=== PATIENT | female | born 1980 | race Hispanic/Latino ===

== ENCOUNTER 2018-02-24 10:52 | Emergency (ER) | payer BC, SELFPAY ==
[2018-02-24 12:44] LABS: Urine Blood 2+ (NEG); Urine Glucose NEGATIVE (NEG); Urine Protein 2+ (NEG)
[2018-02-24 13:02] LABS: Absolute Lymphocytes (CBC) 1.3 K/uL (0.7-4.9); Absolute Monocytes 0.7 K/uL (0.1-1.3); Absolute Neutrophil 9.2 K/uL (1.8-8.0); Basophils % 0.3 % (0-1.3); Eosinophils % 0.3 % (0-4.4); Hematocrit 44.7 % (36.0-45.0); Lymphocytes % 11.7 % (15.3-44.8); MCH 28.7 pg (27.0-35.0); MCV 85.9 fL (80-100); MPV 9.8 fL (7.6-11.3); Monocytes % 6.4 % (3.3-12.3)
[2018-02-24 13:20] LABS: Urine Bacteria 20-50 /HPF (<20); Urine Culture Reflex Order REFLEXED; Urine RBC <5 /HPF (NONE SEEN)
[2018-02-24 13:20] LABS: Glomerular Filtration Rate > 60 mL/min (>60)
[2018-02-24 13:25] LABS: Albumin 4.6 g/dL (3.2-5.5); Bilirubin Direct 0.1 mg/dL (0-0.2); Bilirubin Total 0.6 mg/dL (0.3-1.2); Protein, Total 8.8 g/dL (6.0-8.3)
[2018-02-24] MEDS ORDERED: ONDANSETRON 4 MG/2 ML VIAL ONE (13:28)
[2018-02-24] MEDS ORDERED: NA CHLORIDE 0.9% 1,000 ML ONE (14:25)
[2018-02-24] MEDS ORDERED: DICYCLOMINE HCL 10 MG CAP ONE (14:32)
--- NOTE | 2018-02-24 15:25 | ER ---
Nurse's Notes [facility] Name: Zo Stahl Age: 37 yrs Sex: Female : 1980 Arrival Date: 02/24/2018 Time: 10:56 Bed 13 Private MD: Diagnosis: Nausea and vomiting;Abdominal and pelvic pain Presentation: 02/24 11:12 Presenting complaint: Patient states: N/V/D x 3 days. Not tolerating liquids. hb Transition of care: patient was not received from another setting of care. Onset of symptoms was February 22, 2018. Care prior to arrival: None. 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 - Social history:: Smoking status: Patient/guardian denies using tobacco. Screenin:40 Abuse screen: Denies threats or abuse. Nutritional screening: No deficits noted. ap3 Tuberculosis screening: No symptoms or risk factors identified. Fall Risk None identified. Assessment: 11:35 General: Appears well groomed, Behavior is calm, cooperative. Pain: Denies pain. Neuro: ap3 Level of Consciousness is awake, alert, obeys commands, Oriented to person, place, time, situation. Cardiovascular: Heart tones S1 S2 present Patient's skin is warm and dry. Respiratory: Airway is patent Breath sounds are clear bilaterally. GI: Abdomen is round Stools are reported to be diarrhea. Last BM was February 24, 2018. at 10:30. Bowel sounds present X 4 quads. Abd is soft and non tender X 4 quads. GI: Reports vomiting, since Thursday February 22, 2018. : No signs and/or symptoms were reported regarding the genitourinary system. EENT: No signs and/or symptoms were reported regarding the EENT system. Derm: Skin is normal. Musculoskeletal: Reports mild discomfort in the abdomen, rates the cramping at a 3 on a pain scale of 1-10. 13:16 Reassessment: Patient complains of nausea and dry heaving. Provider notified and new ap3 orders received. 14:09 Reassessment: PO fluids provided. ae1 14:10 Reassessment: Patient appears in no apparent distress at this time. Patient and/or ae1 family updated on plan of care and expected duration. Pain level reassessed. Patient states feeling better. Patient states symptoms have improved. 15:15 Reassessment: Patient able to hold down fluids, states she is feeling better. ae1 15:40 Reassessment: Patient awaiting discharge, IV fluids still infusing. ae1 Vital Signs: 11:14 BP 128 / 95; Pulse 119; Resp 18; Temp 98.4; Pulse Ox 99% ; Weight 104.33 kg; Height 5 hb ft. 2 in. (157.48 cm); Pain 3/10; 12:25 BP 120 / 79; Pulse 91; Pulse Ox 99% on R/A; ap3 13:16 BP 107 / 84; Pulse 93; Pulse Ox 100% on R/A; ap3 14:49 BP 112 / 77; Pulse 78; Resp 16; Pulse Ox 100% on R/A; ae1 15:30 BP 120 / 67; Pulse 69; Resp 18; Pulse Ox 100% on R/A; ae1 11:14 Body Mass Index 42.07 (104.33 kg, 157.48 cm) hb ED Course: 10:56 Patient arrived in ED. rg4 11:13 Triage completed. hb 11:13 Arm band placed on left wrist. hb 11:27 Baljeet Moore, NOAH is Primary Nurse. ae1 11:36 Truong Murphy PA is PHCP. jr8 11:36 Merrill Arshad MD is Attending Physician. jr8 11:40 Placed in gown. Bed in low position. Call light in reach. Side rails up X 1. Pulse ox ap3 on. NIBP on. 12:06 Inserted saline lock: 22 gauge in right antecubital area, using aseptic technique. ap3 Blood collected. 16:02 IV discontinued, intact, bleeding controlled, No redness/swelling at site. Pressure ap3 dressing applied. 16:02 No provider procedures requiring assistance completed. ap3 Administered Medications: 13:08 Drug: Zofran 4 mg Route: IVP; Site: right antecubital; ae1 13:47 Follow up: Response: Nausea is decreased ae1 14:10 Drug: NS 0.9% 1000 ml Route: IV; Rate: 1 bolus; Site: right antecubital; ae1 16:04 Follow up: IV Status: Completed infusion ae1 14:15 Drug: Bentyl 20 mg Route: PO; ae1 16:04 Follow up: Response: Pain is decreased ae1 Outcome: 15:24 Discharge ordered by . kdr 16:03 Attestation : I agree with the charting done by Karolina Reinoso, manager nursing home. . ae1 16:03 Discharged to home ambulatory, with family. 16:03 Condition: stable 16:03 Discharge instructions given to patient, Instructed on discharge instructions, follow up and referral plans. Demonstrated understanding of instructions, Prescriptions given X 3. 16:05 Patient left the ED. ae1 Addendum: 03/03/2018 10:27 Addendum: Culture Results: Positive urine culture. Phone call Attempt #1 Pt reports s s that she is feeling, "100%" better at this time. Signatures: Merrill Arshad MD MD [facility] Debo Abdul RN RN Truong Murphy PA PA jr8 Puja Cruz RN RN Baljeet Moore RN RN ae1 Laura Gomez rg4 Karolina Reinoso ap3
--- NOTE | 2018-02-24 15:25 | EDPHYS ---
Physician Documentation [facility] Name: Zo Stahl Age: 37 yrs Sex: Female : 1980 Arrival Date: 02/24/2018 Time: 10:56 Bed 13 Private MD: ED Physician Merrill Arshad HPI: 02/24 14:49 This 37 yrs old Female presents to ER via Ambulatory with complaints of kdr Vomiting/Diarrhea. 14:49 The patient presents to the emergency department with nausea, that is moderate, kdr vomiting, that is intermittent, diarrhea, that is intermittent, abdominal pain, of the abdomen diffusely, described as achy, burning, crampy, intermittent, steady, vague,\E\ waxing and waning, and radiates to the abdomen diffusely. Onset: The symptoms/episode began/occurred gradually, 3 day(s) ago. Possible causes: unknown. The symptoms are aggravated by nothing. Associated signs and symptoms: Pertinent positives: abdominal pain, diarrhea, nausea, vomiting, Pertinent negatives: belching, constipation, dysuria, flatulence, GI bleeding, hematuria, vaginal discharge. Severity of symptoms: At their worst the symptoms were moderate severe in the emergency department the symptoms have improved mildly. The patient has not experienced similar symptoms in the past. The patient has been recently seen by a physician: the patient's primary care provider. 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 - Social history:: Smoking status: Patient/guardian denies using tobacco. ROS: 14:49 Constitutional: Negative for fever, chills, and weight loss, Eyes: Negative for injury, kdr pain, redness, and discharge, ENT: Negative for injury, pain, and discharge, Neck: Negative for injury, pain, and swelling, Cardiovascular: Negative for chest pain, palpitations, and edema, Respiratory: Negative for shortness of breath, cough, wheezing, and pleuritic chest pain, Back: Negative for injury and pain, : Negative for injury, bleeding, discharge, and swelling, MS/Extremity: Negative for injury and deformity, Skin: Negative for injury, rash, and discoloration, Neuro: Negative for headache, weakness, numbness, tingling, and seizure activity. Psych: Negative for depression, anxiety, suicide ideation, homicidal ideation, and hallucinations, Allergy/Immunology: Negative for hives, rash, and allergies, Endocrine: Negative for neck swelling, polydipsia, polyuria, polyphagia, and marked weight changes, Hematologic/Lymphatic: Negative for swollen nodes, abnormal bleeding, and unusual bruising. 14:49 Abdomen/GI: Positive for abdominal pain, nausea, vomiting, and diarrhea, abdominal cramps, Negative for constipation, abdominal distension, dysphagia, hematemesis, black/tarry stool, rectal pain, rectal bleeding, bowel incontinence. Exam: 14:49 Constitutional: This is a well developed, well nourished patient who is awake, alert, kdr and in no acute distress. Head/Face: Normocephalic, atraumatic. Eyes: Pupils equal round and reactive to light, extra-ocular motions intact. Lids and lashes normal. Conjunctiva and sclera are non-icteric and not injected. Cornea within normal limits. Periorbital areas with no swelling, redness, or edema. Neck: Trachea midline, no thyromegaly or masses palpated, and no cervical lymphadenopathy. Supple, full range of motion without nuchal rigidity, or vertebral point tenderness. No Meningismus. Chest/axilla: Normal chest wall appearance and motion. Nontender with no deformity. No lesions are appreciated. Cardiovascular: Regular rate and rhythm with a normal S1 and S2. No gallops, murmurs, or rubs. Normal PMI, no JVD. No pulse deficits. Back: No spinal tenderness. No costovertebral tenderness. Full range of motion. Skin: Warm, dry with normal turgor. Normal color with no rashes, no lesions, and no evidence of cellulitis. MS/ Extremity: Pulses equal, no cyanosis. Neurovascular intact. Full, normal range of motion. Neuro: Awake and alert, GCS 15, oriented to person, place, time, and situation. Cranial nerves II-XII grossly intact. Motor strength 5/5 in all extremities. Sensory grossly intact. Cerebellar exam normal. Normal gait. Psych: Awake, alert, with orientation to person, place and time. Behavior, mood, and affect are within normal limits. 14:49 Respiratory: mild respiratory distress is noted, Respirations: normal, Breath sounds: no acute changes. Vital Signs: 11:14 BP 128 / 95; Pulse 119; Resp 18; Temp 98.4; Pulse Ox 99% ; Weight 104.33 kg; Height 5 hb ft. 2 in. (157.48 cm); Pain 3/10; 12:25 BP 120 / 79; Pulse 91; Pulse Ox 99% on R/A; ap3 13:16 BP 107 / 84; Pulse 93; Pulse Ox 100% on R/A; ap3 14:49 BP 112 / 77; Pulse 78; Resp 16; Pulse Ox 100% on R/A; ae1 15:30 BP 120 / 67; Pulse 69; Resp 18; Pulse Ox 100% on R/A; ae1 11:14 Body Mass Index 42.07 (104.33 kg, 157.48 cm) hb MDM: 11:36 Patient medically screened. jr8 14:49 Data reviewed: vital signs, nurses notes. Counseling: I had a detailed discussion with kdr the patient and/or guardian regarding: the historical points, exam findings, and any diagnostic results supporting the discharge/admit diagnosis, lab results, the need for outpatient follow up. 02/24 12:22 Order name: Urine Dipstick--Ancillary (enter results); Complete Time: 13:25 ag 02/24 12:22 Order name: Urine --Ancillary (enter results); Complete Time: 13:25 ag 02/24 12:48 Order name: Amylase, Serum ae1 02/24 12:48 Order name: Basic Metabolic Panel; Complete Time: 14:48 ae1 02/24 12:48 Order name: CBC with Diff; Complete Time: 13:25 ae1 02/24 12:48 Order name: Creatinine for Radiology; Complete Time: 13:25 ae1 02/24 12:48 Order name: Hepatic Function; Complete Time: 14:48 ae1 02/24 12:48 Order name: Lipase; Complete Time: 14:48 ae1 02/24 12:48 Order name: Urine Microscopic Only; Complete Time: 13:25 ae1 02/24 12:48 Order name: Amylase Level; Complete Time: 14:48 EDMS 02/24 13:23 Order name: Urine Culture EDMS 02/24 12:48 Order name: IV Saline Lock; Complete Time: 12:48 ae1 02/24 12:48 Order name: Labs collected and sent; Complete Time: 12:58 ae1 02/24 12:48 Order name: Urine Dipstick-Ancillary (obtain specimen); Complete Time: 12:51 ae1 02/24 13:26 Order name: PO challenge; Complete Time: 14:09 kdr Administered Medications: 13:08 Drug: Zofran 4 mg Route: IVP; Site: right antecubital; ae1 13:47 Follow up: Response: Nausea is decreased ae1 14:10 Drug: NS 0.9% 1000 ml Route: IV; Rate: 1 bolus; Site: right antecubital; ae1 16:04 Follow up: IV Status: Completed infusion ae1 14:15 Drug: Bentyl 20 mg Route: PO; ae1 16:04 Follow up: Response: Pain is decreased ae1 Disposition: 02/24/18 15:24 Discharged to Home. Impression: Nausea and vomiting, Abdominal and pelvic pain. - Condition is Stable. - Discharge Instructions: Nausea and Vomiting, [id number], Abdominal Pain, Adult, [id number]. - Prescriptions for Bentyl 20 mg Oral Tablet - take 1 tablet by ORAL route every 6 hours As needed; 20 tablet. Pepcid 20 mg Oral Tablet - take 1 tablet by ORAL route every 12 hours for 5 days; 10 tablet. Zofran 4 mg Oral Tablet - take 1 tablet by ORAL route every 12 hours As needed; 12 tablet. - Medication Reconciliation Form, Thank You Letter, Antibiotic Education, Prescription Opioid Use form. - Follow up: Private Physician; When: 2 - 3 days; Reason: If symptoms return, Further diagnostic work-up, Recheck today's complaints, Continuance of care, Re-evaluation by your physician. - Problem is new. - Symptoms have improved. Signatures: Dispatcher [employer] [facility] Merrill Arshad MD MD kdr Roszak, Josh, PA PA jr8 Puja Cruz, RN RN Baljeet Moore RN RN ae1
[2018-02-24 16:17] VITALS: TEMP 98.4
[2018-02-24 16:19] VITALS: O2SAT 100
[2018-02-24 16:22] VITALS: BP 120/67
== END 2018-02-24 16:05 | disposition home or self-care (01) ==
LOC: ER 10:52
DX: R10.2 Pelvic and perineal pain (principal)
CPT/HCPCS: 36415; 80048; 80076; 81003; 81015; 81025; 82150; 83690; 85025; 87077; 87086; 87088; 87186; 96361; 96374; 99284; J2405; J7030

== ENCOUNTER 2021-12-15 09:55 | Day surgery (SDC) | payer OTHER ==
[2021-12-10 11:52] LABS: Urine Appearance CLEAR (Clear); Urine Bilirubin NEGATIVE (Negative); Urine Blood TRACE (Negative); Urine Color YELLOW (Yellow); Urine Glucose NEGATIVE (Negative); Urine Protein NEGATIVE (Negative); Urine Urobilinogen 0.2 mg/dL (0.2-1.0)
[2021-12-10 12:14] LABS: Absolute Lymphocytes (CBC) 2.2 K/uL (0.7-4.9); Hematocrit 38.6 % (36.0-45.0); Lymphocytes % 20.2 % (15.3-44.8); MPV 9.2 fL (7.6-11.3); RBC Red Blood Cell Count 4.59 M/uL (3.86-4.86); Urine Microscopic Reflex ORDER UMIC
[2021-12-10 13:31] LABS: Urine Bacteria <20 /HPF (<20); Urine Mucus 1+ /HPF (NONE SEEN)
[2021-12-15] MEDS ORDERED: Ringers Lactate 1,000 ML IV ONE ×2 (10:32→13:05)
[2021-12-15] MEDS ORDERED: SCOPOLAMINE HYDROBROMIDE PATCH TD ONE (10:32)
[2021-12-15] MEDS ORDERED: CEFAZOLIN 3 GM in NA CHLORIDE 0.9% 100 ML IVPB ONE (11:00)
[2021-12-15] MEDS ORDERED: BUPIVACAINE 0.25% PF 10 ML VIAL ONE (11:12)
[2021-12-15] MEDS ORDERED: NA CHLORIDE 0.9% 2,000 ML ONE (11:13)
[2021-12-15] MEDS ORDERED: CELECOXIB 100 MG CAPSULE ONE (11:14)
[2021-12-15] MEDS ORDERED: ACETAMINOPHEN 500 MG TAB ONE (11:15)
[2021-12-15] MEDS ORDERED: SUCCINYLCHOLINE 20 MG/ML (10 ML) IV ONE (11:41)
[2021-12-15] MEDS ORDERED: FENTANYL CITR 250 MCG/5 ML ONE (11:42)
[2021-12-15] MEDS ORDERED: propofoL 200 MG/20 ML VIAL IV ONE (11:42)
[2021-12-15] MEDS ORDERED: MIDAZOLAM HCL 2 MG/2 ML INJ ONE (11:42)
[2021-12-15] MEDS ORDERED: ROCURONIUM 50 MG/5 ML VIAL IV ONE (11:42)
[2021-12-15] MEDS ORDERED: dexAMETHasone 10 MG/ML VIAL ONE (12:11)
[2021-12-15] MEDS ORDERED: ONDANSETRON 4 MG/2 ML VIAL ONE (12:21)
[2021-12-15] MEDS ORDERED: NS 0.9% VIAL 10 ML ONE (12:58)
[2021-12-15] MEDS ORDERED: VECURONIUM 10 MG/VIAL IV ONE (12:59)
[2021-12-15] MEDS ORDERED: NA CHLORIDE 0.9% 1,000 ML ONE (13:49)
[2021-12-15] MEDS ORDERED: NEOSTIGMINE 1 MG/ML -5 ML ONE (15:16)
[2021-12-15] MEDS ORDERED: GLYCOPYRROLATE 0.2 MG/ML SYR ONE (15:16)
[2021-12-15] MEDS ORDERED: ALPRAZOLAM 0.25 MG TABLET PO PRN (15:34)
[2021-12-15] MEDS ORDERED: HOME MED 1 EA UNK (Propranolol Hcl [Propranolol Hcl] 20 MG Tablet) PO PRN (15:34)
[2021-12-15] MEDS ORDERED: ZOLPIDEM TARTRATE 10 MG TABLET PO PRN (15:34)
[2021-12-15] MEDS ORDERED: MEPERIDINE HCL 25 MG/ML SYR IM PRN (15:35)
[2021-12-15] MEDS ORDERED: IBUPROFEN 200 MG TAB PO PRN (15:35)
[2021-12-15] MEDS ORDERED: PROMETHAZINE INJ 25 MG/ML AMP IV PRN (15:35)
--- NOTE | 2021-12-15 15:45 | P.BOP ---
Preoperative diagnosis: AUB-O Postoperative diagnosis: AUB-A/Endometriosis-stage 4/R ovarian+karina-ureteric adhesions Primary procedure: TLH BS, Rt Ureterolysis,ovariolysis,ovariopexy, Endometirosis excision Secondary procedure: Cystoscopy, R ureteric stent insertion and removal Wireless Sales Expert: Janneth Yu Estimated blood loss: 100 Specimen: Rt ovarian endometrioma, bilat tubes and uterus Findings: R tubo-ovarian endo/R round lig adenomyoma/cystoscopy patent ureters Anesthesia: General Complications: None Fluids & blood products: 2200/ UO 300, slightly blood tinged urine Transferred to: Recovery Room Condition: Good
[2021-12-15] MEDS: HYDROMORPHONE HCL 1 MG/ML INJ ONE ×2 (16:10→16:16)
[2021-12-15 17:13] VITALS: O2SAT 100
[2021-12-15] MEDS: HYDROCODONE/APAP 5/325 MG TAB PO PRN ×2 (17:16→17:35)
[2021-12-15] MEDS ORDERED: HYDROCODONE/APAP 5/325 MG TAB ONE ×2 (17:16→17:39)
[2021-12-15 19:23] VITALS: BP 141/73; TEMP 97
[2021-12-15] MEDS ORDERED: HOME MED 1 EA UNK (Melatonin [Melatonin] 10 MG Capsule) PO SCH (21:00)
[2021-12-16] MEDS ORDERED: lamoTRIgine 100 MG TAB PO SCH (09:00)
[2021-12-16] MEDS ORDERED: HOME MED 1 EA UNK (Citalopram Hydrobromide [Celexa] 20 MG Tablet) PO SCH (09:00)
[2021-12-16] MEDS ORDERED: FEXOFENADINE 180 MG TAB PO SCH (09:00)
--- NOTE | 2021-12-17 13:36 | OP ---
Date of Procedure: 12/15/2021 Surgeon: Beryl Hoyt MD [employer] Floor[employer] Specialist: Janneth Escobedo. Preoperative Diagnosis: Menorrhagia (AUB-O) Postoperative Diagnosis: AUB-A/endometriosis stage IV, right ovarian and periureteric adhesions. Procedures Performed: Total laparoscopic hysterectomy, right ureterolysis, right ovariolysis and ova riopexy after excision of the endometrioma, then endometriosis excision from the right broad ligament . The specimen of the endometrioma included along with uterine specimen as this also was invading th e right round ligament. Right ureteric stent was inserted and removed. Cystoscopy was performed on this patient. Intraoperative Blood Loss: 100. Specimens: Right ovarian endometrioma, bilateral tubes and uterus. The endometriosis included with the uterine specimen on the right wall with the round ligament. Findings: Right tubo-ovarian endometriosis, round ligament adenomyoma/adenomyosis of endometriosis, cystoscopy showed patent ureters on both sides. Complications: No complications. Fluids Given: 2200. Urine Output: 1.Slightly blood-tinged urine was seen at the end of the case. Disposition: After the stents were removed, transferred to the recovery room in stable condition. Indications: The patient is a 41-year-old female, presented with menorrhagia. She was evaluated for this and endometrial sampling was done with ultrasound and endometrial sampling showed no atypia or malignancy. So, we discussed about the alternatives of treatment including ablation with laparoscopy , IUD with laparoscopy as needed or hysterectomy. The patient was also aware about all the medical t reatment options, which include the depot medroxyprogesterone acetate. The patient preferred to proc eed with hysterectomy as her definitive diagnosis without any recurrence. She will be discussed abou t ovarian preservation, which was highly recommended. After informed consent was verified, she was brought to the OR, placed in supine fashion on the opera ting table. General anesthesia was given. She was placed in dorsal lithotomy position using Anoop s tirrups. 3 g of Ancef were given preop. SCDs were started. Time-out was done. Abdomen, vulva, vag eyal, and perineum were prepped and draped in a sterile fashion. Jeff was placed to drain the bladde r and attached for retrograde filling, left draining on the floor. Then, speculum placed to expose t he cervix. It was difficult to insert her uterine manipulator as the uterus appeared to be retroflex ed, however, the cavity was not easily accessible. So, I aborted the incision of the manipulator. I went onto the top. A 1 cm infraumbilical incision was made with a scalpel using the open laparosco py technique. Fascia was tagged. Peritoneum was entered sharply. S-retractors were placed. Marissa introduced. Site of entry was checked and was unremarkable. Then, made 5 left and right lower quad rant ports and a 10 suprapubic port. After placing the patient in Trendelenburg position, the uterus was visualized. It appeared to be retroflexed, however, the cavity appeared to not be trending in t hat direction. It was more anteverted, so laparoscopy was paused, went back down to look at the uter ine manipulator and insertion of the manipulator. Cervix had to be dilated. There was a lack of dilators on the set. Once the small dilators were ope david, they were not enough. It was difficult to find the cavity. Once the uterine sound was passed, it was anteflexed, anteverted, so I went ahead and got dilators from a different set and once the dil ation was done to 16-Chilean, then I was able to insert the uterine manipulator without any other prob lems. There was a perforation on the uterine wall and the posterior wall. This was from advancing t he uterine manipulator. So, once this was corrected and the cavity was entered, no other problems. Cup was fixed in place. I used a medium manipulator. The colon was tagged with a 3-0 Monocryl suture, pulled out through the left upper quadrant using a C skip-Lizeth needle for retraction. Then, I visualized the pelvic cavity in its entirety and was able to start the case. It was clear how the right ovary and the tube were dilated. The right ovary was enlarged and the rig ht tube was dilated and attached to the posterior broad ligament, right lateral wall. The ureter was traced from the pelvic brim to the level of the adhesions here, but I could not trace it down to the ureteric tunnel on the right side. On the left side, it was different with mostly open and accessed without significant scarring. Anteriorly at the level of the bladder peritoneum, there appeared to be some adhesions, however, likely from endometriosis than anything else. Then, mesosalpinx was dissected and excised, retrieved, and handed off for permanent pathology. Then , utero-ovarian ligament was taken down. Round ligament was taken down. The broad ligament was open ed up anteriorly and posteriorly and the broad ligament taken down after dissecting the uterosacral l igament on the left side. Anterior broad ligament was opened out to raise the bladder flap and bladd er was dissected inferiorly. The vessels were visualized and cauterized here with the help of the Ella Moon. On the opposite side, the round ligament was infiltrated with endometriosis and this was almost all t he way close to the internal inguinal ring. It was about another 3 cm left before this endometriotic lesion ended. So, the peritoneum inferior and superior to the round ligament here were opened up cl early dissecting the sidewall separately and LigaSure was applied and the round ligament was taken do wn lateral to the endometriotic implant and the broad ligament was dissected down all the way to conn ect to the bladder flap. Bladder was dissected inferiorly and vessels here were exposed; however, th e ureter was extremely close and scarred to the implants that were posterior and close to the ovary, so I had to dissect the ovary and the tube from the posterior broad ligament in order for me to yeimy nue this. So focusing on this area, the attachment of the ovary to the uterosacral was taken down. Then, dissection was carried between the right lateral wall and the ovary. The adhesions taken down in a sharp fashion. Then, once the ovary was released, the endometrium was excised. It was on the s dana of the uterus between the uterus and the ovaries on top of the utero-ovarian ligament. Once this was fully drained and excised, handed out for permanent pathology. Then, the tube was dissected lat erally from the fimbriated end and it was and handed out for pathology as well. Then, the utero-ovarian ligament was taken down. 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 I stopped the laparoscopy and put in a cystoscope with 17-Chilean sheath and 30-degree lens, normal sa line for distention medium. Cystoscopy was performed. No evidence of any trauma to the bladder. Andrey th ureteric orifices were patent. Then, I cannulated the left ureter with a guidewire and a #5 stent was placed through the right ureter on top of the cannulated guidewire. Once the stent was advanced at least 12 cm from the ureteric orifice, the guidewire was removed. The Jeff was replaced and was inserted to drain through the Jonathan tree arrangement. Once this was attached to a drainage bag, this was left on the floor. Next, the Jeff and the stent were tied together with the help of silk ties. The patient was placed in Trendelenburg position. Again, the ureter was traced now that the stent wa s placed. It was a little bit more easily palpable. Visually also finding the ureter at the pelvic brim was easy. The next procedure was ureterolysis where I from the lateral wall of the uterus and the str uctures and then medially from the peritoneum and dissecting it free. Here, the dissection had to be performed between the ureter and the uterosacral ligament as well as the uterine artery on the top. Once this was isolated, the peritoneum between the ureter and the uterosacral was cut and taken down towards the posterior wall. Once this was released, then the vessels were taken down with the help of the LigaSure and the bipolar and cardinal ligaments taken down anteriorly. At least 2 cm of space was created between the end of the cuff and the bladder. Then laterally on the left, the vessels we re taken down and cardinal ligaments were taken down. Circumferential colpotomy was performed with m onopolar hook blade and the specimen pulled out through the vagina without any problems and handed of f for permanent pathology. Once all this was done, there was excellent hemostasis at the cuff and simple two 0 Vicryl sutures we re placed at both corners and 3 [id number] in the center for good apposition and left, and the distal uterosacrals were reattached to the vaginal cuff as it was closed. Once this was done, thorou gh irrigation and suction were performed. No evidence of any electrical, mechanical, or thermal inju ry to the ureters. Attention was directed to the right ovary, which was hanging right by the IP without any support from the round ligament. The round ligament was too retracted and close to the internal ring that the ov prudencio could not be mobilized all the way up, so I planned to open and suture this ovary to the peritone um at the pelvic brim end. Three throws were taken with a 2-0 Monocryl suture and once this was tied down, there was excellent suspension outside of the area of all the scar tissue to prevent adhesion formation that would impair another excision if it had to be done on oophorectomy; however, there cou ld be potential for the right ureter to be attached to the right ovarian pathology. Pictures were taken. The appendix appeared to be normal. No other abnormalities were seen. Thoroug h irrigation and suction were performed and all trocars were removed under direct vision. De-sufflat ion was done. Fascia at the umbilicus closed with 0 Vicryl [id number] suture and simple 0 Vicry l stitch. All skin incisions with 3-0 chromic were closed. Then, once all the laparoscopy was compl eted, instrument, needle and sponge counts were done and were correct. I went down and performed a cystoscopy after removing the stent and Jeff. There was excellent jets of urine from both and no evidence of any trauma to the bladder after full visualization of the bladd er. The bladder was drained. The sponge in the vagina was removed. The patient was recovered from anesthesia and taken to PACU in stable condition. She will follow up with me in 1 week. FERNANDA/ALONDRA Voice ID: [id number] Report ID: [id number]
== END 2021-12-15 18:40 | disposition home or self-care (01) ==
LOC: OR 09:55
PROVIDERS: ATTEND Obstetrics & Gynecology
PROC: 0UT74ZZ Resection of Bilateral Fallopian Tubes, Percutaneous Endoscopic Approach (ICD-10-PCS; 2021-12-15)
PROC: 0UB44ZZ Excision of Uterine Supporting Structure, Percutaneous Endoscopic Approach (ICD-10-PCS; 2021-12-15)
PROC: 0UN04ZZ Release Right Ovary, Percutaneous Endoscopic Approach (ICD-10-PCS; 2021-12-15)
PROC: 0TN64ZZ Release Right Ureter, Percutaneous Endoscopic Approach (ICD-10-PCS; 2021-12-15)
PROC: 0UB94ZZ Excision of Uterus, Percutaneous Endoscopic Approach (ICD-10-PCS; 2021-12-15)
PROC: 0UT94ZZ Resection of Uterus, Percutaneous Endoscopic Approach (ICD-10-PCS; principal; 2021-12-15 11:30)
DX: N92.0 Excessive and frequent menstruation with regular cycle (principal); E66.01 Morbid (severe) obesity due to excess calories; N80.0 Endometriosis of uterus; D25.9 Leiomyoma of uterus, unspecified; N80.1 Endometriosis of ovary; Z20.822 Contact with and (suspected) exposure to COVID-19
CPT/HCPCS: 85025; 36415; 86900; 86850; 81025; 86901; 88305; 88307; 58571; 58662; 58660; 50949; 49203; U0002; J2704; J0330; J2250; J3010; J1100; J1170; J2710; J7120 ×2; J7030 ×2; J2405; J0690; 81003; 81015

== ENCOUNTER 2023-07-25 13:39 | Emergency (ER) | payer OTHER ==
--- OUTSIDE RECORDS SUMMARY | 2023-07-25 13:42 | XMS REPORT | Continuity of Care Document ---
:1980 Author Organization 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 Clinician Unavailable Payers Payer Name Policy Type Policy Number Effective Date Expiration Date S ale Odellr from [id number] 2021 Common [facility] 00:00:00 - [facility] Ambetter from [id number] 2021 Common [facility] 00:00:00 - [facility] Problems Condition Condition Condition Status Onset Resolution Last Treating Co mments Source Name Details Category Date Date Treatment Clinician Date [id number] Elevated Problem Comm on BP without Spirit diagnosis - [facility] [id number] Intractabl Problem Co mmon e migraine Spirit without - [facility] s [id number] BMI Problem Common 40.0-44.9, Spirit adult - [facility] History of History of Problem C ommon cholelithi cholelithi Sp ramya asis asis - [facility] [id number] Iron Problem Common deficiency Spirit anemia due - [facility] to chronic [facility] blood [facility] [id number] Anxiety Problem Common [facility] [id number] Bipolar Problem Commo n depression [facility] [id number] Prediabete Problem Co mmon s [facility] Allergies, Adverse Reactions, Alerts Allergy Allergy Status Severity Reaction(s) Onset Inactive Treating Comm ents Source Name Type Date Date Clinician Iodinate DA Active SV HIVES 2020-11 [facility] d 11-29 [place] [facility] 00:00: d Media 00 [facility] Center 463 Drug Active Unknown Common allergy [facility] Social History Social Habit Start Date Stop Date Quantity Comments Source History of Tobacco Use Co [facility] Sex Assigned At Com mon [facility] Smoking Status Start Date Stop Date Source Never Smoker [facility] Medications Ordered Filled Start Stop Current Ordering Indication Dosage Frequency Signature Comments Components Source Medication Medication Date Date Medication? Clinician (SIG) Name Name Saxjose 18 Saxenda 18 2021- No Saxenda 18 MG/3ML MG/3ML 9-26 10-24 MG/3ML 00:00: 00:00 00 :00 Saxenda 18 Saxenda 18 2021-0 2021- No Saxenda 18 MG/3ML MG/3ML 9-26 10-24 MG/3ML 00:00: 00:00 00 :00 Saxenda 18 Saxenda 18 2021-2021- No Saxenda 18 MG/3ML MG/3ML 9-26 10-24 MG/3ML 00:00: 00:00 00 :00 Saxenda 18 Saxenda 18 2021-2021- No Saxenda 18 MG/3ML MG/3ML 9-26 10-24 MG/3ML 00:00: 00:00 00 :00 Saxenda 18 Saxenda 18 2021-2021- No Saxenda 18 MG/3ML MG/3ML 9-26 10-24 MG/3ML 00:00: 00:00 00 :00 Lisinopril Lisinopril No 1{table QD Lisinopril 5 MG 5 MG 8-10 t} 5 MG 00:00: 00 Ubrelvy 100 Ubrelvy 100 2022-0 2022- No QD Ubrelvy MG MG 07-07 100 MG 00:00: 00:00 00 :00 Ubrelvy 100 Ubrelvy 100 2021-0 2- No QD Ubrelvy MG MG 07-07 100 MG 00:00: 00:00 00 :00 Ubrelvy 100 Ubrelvy 100 2021-0 2- No QD Ubrelvy MG MG 07-07 100 MG 00:00: 00:00 00 :00 Ubrelvy 100 Ubrelvy 100 2021-0 2021- No QD Ubrelvy MG MG 07-07 100 MG 00:00: 00:00 00 :00 Ubrelvy 100 Ubrelvy 100 2021-0 2021- No QD Ubrelvy MG MG 07-07 100 MG 00:00: 00:00 00 :00 Ubrelvy 100 Ubrelvy 100 2021-0 2- No QD Ubrelvy MG MG 07-07 100 MG 00:00: 00:00 00 :00 SUMAtriptan SUMAtriptan 2021-0 No BID SUMAtripta Succinate Succinate 7-13 n 50 MG 50 MG 00:00: Succinate 00 50 MG SUMAtriptan SUMAtriptan 2021-0 No BID SUMAtripta Succinate Succinate 7-13 n 50 MG 50 MG 00:00: Succinate 00 50 MG SUMAtriptan SUMAtriptan 2021-0 No BID SUMAtripta Succinate Succinate 7-13 n 50 MG 50 MG 00:00: Succinate 00 50 MG SUMAtriptan SUMAtriptan 2021-0 No BID SUMAtripta Succinate Succinate 7-13 n 50 MG 50 MG 00:00: Succinate 00 50 MG SUMAtriptan SUMAtriptan 2-0 No BID SUMAtripta Succinate Succinate 7-13 n 50 MG 50 MG 00:00: Succinate 00 50 MG SUMAtriptan SUMAtriptan 2-0 No BID SUMAtripta Succinate Succinate 7-13 n 50 MG 50 MG 00:00: Succinate 00 50 MG SUMAtriptan SUMAtriptan 2-0 No BID SUMAtripta Succinate Succinate 7-13 n 50 MG 50 MG 00:00: Succinate 00 50 MG Lisinopril Lisinopril No 1{table QD Lisinopril 10 MG 10 MG t} 10 MG Citalopram Citalopram No Citalopram Hydrobromid Hydrobromid Hydrobromi e 20 MG e 20 MG de 20 MG Melatonin Melatonin No 1{table QD Melatonin 10 MG 10 MG t_in_th 10 MG e_eveni ng} ALPRAZolam ALPRAZolam No 1{table BID ALPRAZolam 0.5 MG 0.5 MG t_as_ne 0.5 MG eded} Laura Laura No QD Laura Allergy 180 Allergy 180 Allergy MG MG 180 MG lamoTRIgine lamoTRIgine No 1{table QD lamoTRIgin 100 MG 100 MG t} e 100 MG Zolpidem Zolpidem No 1{table QD Zolpidem Tartrate 10 Tartrate 10 t_at_be Tartrate MG MG dtime_a 10 MG s_neede d} Propranolol Propranolol No 1{table QD Propranolo HCl 20 MG HCl 20 MG t_as_ne l HCl 20 eded} MG Lisinopril Lisinopril No Lisinopril 5 MG 5 MG 5 MG Flonase Flonase No 1{spray QD Flonase Allergy Allergy _in_eac Allergy Relief 50 Relief 50 h_nostr Relief 50 MCG/ACT MCG/ACT il} MCG/ACT Lisinopril Lisinopril No 1{table QD Lisinopril 10 MG 10 MG t} 10 MG Citalopram Citalopram No Citalopram Hydrobromid Hydrobromid Hydrobromi e 20 MG e 20 MG de 20 MG Melatonin Melatonin No 1{table QD Melatonin 10 MG 10 MG t_in_th 10 MG e_eveni ng} ALPRAZolam ALPRAZolam No 1{table BID ALPRAZolam 0.5 MG 0.5 MG t_as_ne 0.5 MG eded} Laura Laura No QD Laura Allergy 180 Allergy 180 Allergy MG MG 180 MG lamoTRIgine lamoTRIgine No 1{table QD lamoTRIgin 100 MG 100 MG t} e 100 MG Zolpidem Zolpidem No 1{table QD Zolpidem Tartrate 10 Tartrate 10 t_at_be Tartrate MG MG dtime_a 10 MG s_neede d} Zolpidem Zolpidem No 1{table QD Zolpidem Tartrate 10 Tartrate 10 t_at_be Tartrate MG MG dtime_a 10 MG s_neede d} Flonase Flonase No 1{spray QD Flonase Allergy Allergy _in_eac Allergy Relief 50 Relief 50 h_nostr Relief 50 MCG/ACT MCG/ACT il} MCG/ACT Laura Laura No QD Laura Allergy 180 Allergy 180 Allergy MG MG 180 MG Melatonin Melatonin No 1{table QD Melatonin 10 MG 10 MG t_in_th 10 MG e_eveni ng} Lisinopril Lisinopril No 1{table QD Lisinopril 10 MG 10 MG t} 10 MG Citalopram Citalopram No Citalopram Hydrobromid Hydrobromid Hydrobromi e 20 MG e 20 MG de 20 MG Propranolol Propranolol No 1{table QD Propranolo HCl 20 MG HCl 20 MG t_as_ne l HCl 20 eded} MG lamoTRIgine lamoTRIgine No 1{table QD lamoTRIgin 100 MG 100 MG t} e 100 MG Lisinopril Lisinopril No Lisinopril 5 MG 5 MG 5 MG ALPRAZolam ALPRAZolam No 1{table BID ALPRAZolam 0.5 MG 0.5 MG t_as_ne 0.5 MG eded} Melatonin Melatonin No 1{table QD Melatonin 10 MG 10 MG t_in_th 10 MG e_eveni ng} ALPRAZolam ALPRAZolam No 1{table BID ALPRAZolam 0.5 MG 0.5 MG t_as_ne 0.5 MG eded} Zolpidem Zolpidem No 1{table QD Zolpidem Tartrate 10 Tartrate 10 t_at_be Tartrate MG MG dtime_a 10 MG s_neede d} Flonase Flonase No 1{spray QD Flonase Allergy Allergy _in_eac Allergy Relief 50 Relief 50 h_nostr Relief 50 MCG/ACT MCG/ACT il} MCG/ACT Vraylar 1.5 Vraylar 1.5 No 1{capsu QD Vraylar MG MG le} 1.5 MG Propranolol Propranolol No 1{table QD Propranolo HCl 20 MG HCl 20 MG t_as_ne l HCl 20 eded} MG Citalopram Citalopram No Citalopram Hydrobromid Hydrobromid Hydrobromi e 20 MG e 20 MG de 20 MG Laura Laura No QD Laura Allergy 180 Allergy 180 Allergy MG MG 180 MG Lisinopril Lisinopril No 1{table QD Lisinopril 10 MG 10 MG t} 10 MG lamoTRIgine lamoTRIgine No 1{table QD lamoTRIgin 100 MG 100 MG t} e 100 MG Propranolol Propranolol No 1{table QD Propranolo HCl 20 MG HCl 20 MG t_as_ne l HCl 20 eded} MG Lisinopril Lisinopril No Lisinopril 5 MG 5 MG 5 MG Flonase Flonase No 1{spray QD Flonase Allergy Allergy _in_eac Allergy Relief 50 Relief 50 h_nostr Relief 50 MCG/ACT MCG/ACT il} MCG/ACT Lisinopril Lisinopril No 1{table QD Lisinopril 10 MG 10 MG t} 10 MG Citalopram Citalopram No Citalopram Hydrobromid Hydrobromid Hydrobromi e 20 MG e 20 MG de 20 MG Melatonin Melatonin No 1{table QD Melatonin 10 MG 10 MG t_in_th 10 MG e_eveni ng} ALPRAZolam ALPRAZolam No 1{table BID ALPRAZolam 0.5 MG 0.5 MG t_as_ne 0.5 MG eded} Laura Laura No QD Laura Allergy 180 Allergy 180 Allergy MG MG 180 MG lamoTRIgine lamoTRIgine No 1{table QD lamoTRIgin 100 MG 100 MG t} e 100 MG Zolpidem Zolpidem No 1{table QD Zolpidem Tartrate 10 Tartrate 10 t_at_be Tartrate MG MG dtime_a 10 MG s_neede d} Propranolol Propranolol No 1{table QD Propranolo HCl 20 MG HCl 20 MG t_as_ne l HCl 20 eded} MG Lisinopril Lisinopril No Lisinopril 5 MG 5 MG 5 MG Flonase Flonase No 1{spray QD Flonase Allergy Allergy _in_eac Allergy Relief 50 Relief 50 h_nostr Relief 50 MCG/ACT MCG/ACT il} MCG/ACT Lisinopril Lisinopril No 1{table QD Lisinopril 10 MG 10 MG t} 10 MG Citalopram Citalopram No Citalopram Hydrobromid Hydrobromid Hydrobromi e 20 MG e 20 MG de 20 MG Melatonin Melatonin No 1{table QD Melatonin 10 MG 10 MG t_in_th 10 MG e_eveni ng} ALPRAZolam ALPRAZolam No 1{table BID ALPRAZolam 0.5 MG 0.5 MG t_as_ne 0.5 MG eded} Laura Laura No QD Laura Allergy 180 Allergy 180 Allergy MG MG 180 MG lamoTRIgine lamoTRIgine No 1{table QD lamoTRIgin 100 MG 100 MG t} e 100 MG Zolpidem Zolpidem No 1{table QD Zolpidem Tartrate 10 Tartrate 10 t_at_be Tartrate MG MG dtime_a 10 MG s_neede d} Melatonin 5 Melatonin 5 No 1{table QD Melatonin MG MG t_in_th 5 MG e_eveni ng} Citalopram Citalopram No 1{table QD Citalopram Hydrobromid Hydrobromid t} Hydrobromi e 10 MG e 10 MG de 10 MG Citalopram Citalopram No 1{table QD Hydrobromid Hydrobromid t} e 10 MG e 10 MG Melatonin 5 Melatonin 5 No 1{table QD MG MG t_in_th e_eveni ng} Melatonin Melatonin No 1{table QD Melatonin 10 MG 10 MG t_in_th 10 MG e_eveni ng} Zolpidem Zolpidem No 1{table QD Zolpidem Tartrate 10 Tartrate 10 t_at_be Tartrate MG MG dtime_a 10 MG s_neede d} ALPRAZolam ALPRAZolam No 1{table BID ALPRAZolam 0.5 MG 0.5 MG t_as_ne 0.5 MG eded} Propranolol Propranolol No 1{table QD Propranolo HCl 20 MG HCl 20 MG t_as_ne l HCl 20 eded} MG Citalopram Citalopram No Citalopram Hydrobromid Hydrobromid Hydrobromi e 20 MG e 20 MG de 20 MG Flonase Flonase No 1{spray QD Flonase Allergy Allergy _in_eac Allergy Relief 50 Relief 50 h_nostr Relief 50 MCG/ACT MCG/ACT il} MCG/ACT Laura Laura No QD Laura Allergy 180 Allergy 180 Allergy MG MG 180 MG lamoTRIgine lamoTRIgine No 1{table QD lamoTRIgin 100 MG 100 MG t} e 100 MG ALPRAZolam ALPRAZolam No 1{table BID ALPRAZolam 0.5 MG 0.5 MG t_as_ne 0.5 MG eded} Zolpidem Zolpidem No 1{table QD Zolpidem Tartrate 10 Tartrate 10 t_at_be Tartrate MG MG dtime_a 10 MG s_neede d} Laura Laura No QD Laura Allergy 180 Allergy 180 Allergy MG MG 180 MG lamoTRIgine lamoTRIgine No 1{table QD lamoTRIgin 100 MG 100 MG t} e 100 MG Flonase Flonase No 1{spray QD Flonase Allergy Allergy _in_eac Allergy Relief 50 Relief 50 h_nostr Relief 50 MCG/ACT MCG/ACT il} MCG/ACT Citalopram Citalopram No Citalopram Hydrobromid Hydrobromid Hydrobromi e 20 MG e 20 MG de 20 MG Propranolol Propranolol No 1{table QD Propranolo HCl 20 MG HCl 20 MG t_as_ne l HCl 20 eded} MG Melatonin Melatonin No 1{table QD Melatonin 10 MG 10 MG t_in_th 10 MG e_eveni ng} ALPRAZolam ALPRAZolam No 1{table BID ALPRAZolam 0.5 MG 0.5 MG t_as_ne 0.5 MG eded} Propranolol Propranolol No 1{table QD Propranolo HCl 20 MG HCl 20 MG t_as_ne l HCl 20 eded} MG Citalopram Citalopram No Citalopram Hydrobromid Hydrobromid Hydrobromi e 20 MG e 20 MG de 20 MG Melatonin Melatonin No 1{table QD Melatonin 10 MG 10 MG t_in_th 10 MG e_eveni ng} lamoTRIgine lamoTRIgine No 1{table QD lamoTRIgin 100 MG 100 MG t} e 100 MG Zolpidem Zolpidem No 1{table QD Zolpidem Tartrate 10 Tartrate 10 t_at_be Tartrate MG MG dtime_a 10 MG s_neede d} Laura Laura No QD Laura Allergy 180 Allergy 180 Allergy MG MG 180 MG Flonase Flonase No 1{spray QD Flonase Allergy Allergy _in_eac Allergy Relief 50 Relief 50 h_nostr Relief 50 MCG/ACT MCG/ACT il} MCG/ACT Propranolol Propranolol No 1{table QD Propranolo HCl 20 MG HCl 20 MG t_as_ne l HCl 20 eded} MG Lisinopril Lisinopril No Lisinopril 5 MG 5 MG 5 MG Flonase Flonase No 1{spray QD Flonase Allergy Allergy _in_eac Allergy Relief 50 Relief 50 h_nostr Relief 50 MCG/ACT MCG/ACT il} MCG/ACT Immunizations Ordered Immunization Filled Immunization Date Status Commen ts Source Name Name [employer] [facility] Completed Comm on Spirit COVID-19 Vaccine, COVID-19 Vaccine, 15:11:00 - [facility] Flucelvax - single Flucelvax - single 2022-09-15 Completed Common Spirit dose syringe dose syringe 15:11:00 - [facility] Completed Comm on [facility] COVID-19 Vaccine, COVID-19 Vaccine, 15:11:00 [facility] Flucelvax - single Flucelvax - single 2022-09-15 Completed Common Spirit dose syringe dose syringe 15:11:00 [facility] Vital Signs Vital Name Observation Time Observation Value Comments Source height 2022-11-30 16:00:00 62.5 [in_i] [facility] weight 2022-11-30 16:00:00 253.6 [lb_av] [facility] temperature 2022-11-30 16:00:00 97.4 [degF] [facility] bmi 2022-11-30 16:00:00 45.64 kg/m2 [facility] oximetry 2022-11-30 16:00:00 98 % [facility] respiratory rate 2022-11-30 16:00:00 17 /min Comm on [facility] blood pressure 2022-11-30 16:00:00 138 mm[Hg] Common [facility] - systolic [facility] blood pressure 2022-11-30 16:00:00 82 mm[Hg] Common [facility] - diastolic [facility] height 2022-09-16 14:20:00 62.5 [in_i] [facility] weight 2022-09-16 14:20:00 238.6 [lb_av] Common [facility] temperature 2022-09-16 14:20:00 97.5 [degF] Common S [facility] bmi 2022-09-16 14:20:00 42.94 kg/m2 [facility] oximetry 2022-09-16 14:20:00 100 % [facility] respiratory rate 2022-09-16 14:20:00 16 /min Comm on [facility] blood pressure 2022-09-16 14:20:00 118 mm[Hg] Common [facility] - systolic [facility] blood pressure 2022-09-16 14:20:00 74 mm[Hg] Common [facility] - diastolic [facility] height 2022-08-17 15:40:00 62.5 [in_i] Common [facility] weight 2022-08-17 15:40:00 237.8 [lb_av] [facility] temperature 2022-08-17 15:40:00 97.2 [degF] Common S [facility] bmi 2022-08-17 15:40:00 42.8 kg/m2 Common [facility] oximetry 2022-08-17 15:40:00 100 % Common [facility] respiratory rate 2022-08-17 15:40:00 16 /min Comm on [facility] blood pressure 2022-08-17 15:40:00 136 mm[Hg] Common [facility] - systolic [facility] blood pressure 2022-08-17 15:40:00 78 mm[Hg] Common [facility] - diastolic [facility] height 2022-07-07 13:40:00 62.5 [in_i] Common S pirit - [facility] weight 2022-07-07 13:40:00 234.4 [lb_av] [facility] temperature 2022-07-07 13:40:00 97.6 [degF] Common S pirit - [facility] bmi 2022-07-07 13:40:00 42.18 kg/m2 Common S pirit [facility] oximetry 2022-07-07 13:40:00 99 % [facility] 2022-07-07 13:40:00 16 /min Comm on [facility] blood pressure 2022-07-07 13:40:00 169 mm[Hg] Common [facility] - systolic [facility] blood pressure 2022-07-07 13:40:00 76 mm[Hg] Common [facility] - diastolic [facility] height 2022-06-09 14:20:00 62.5 [in_i] Common S [facility] weight 2022-06-09 14:20:00 234.4 [lb_av] [facility] temperature 2022-06-09 14:20:00 97.3 [degF] Common S pirit [facility] bmi 2022-06-09 14:20:00 42.18 kg/m2 Common S pirit [facility] oximetry 2022-06-09 14:20:00 99 % [facility] 2022-06-09 14:20:00 16 /min Comm on [facility] blood pressure 2022-06-09 14:20:00 150 mm[Hg] Common [facility] - systolic [facility] blood pressure 2022-06-09 14:20:00 86 mm[Hg] Common [facility] - diastolic [facility] weight 2022-02-15 16:00:00 222 [lb_av] Common S pirit [facility] temperature 2022-02-15 16:00:00 97.9 [degF] Common S [facility] bmi 2022-02-15 16:00:00 39.95 kg/m2 [facility] oximetry 2022-02-15 16:00:00 99 % [facility] respiratory rate 2022-02-15 16:00:00 16 /min Comm on [facility] blood pressure 2022-02-15 16:00:00 138 mm[Hg] Common [facility] - systolic [facility] blood pressure 2022-02-15 16:00:00 72 mm[Hg] Common [facility] - diastolic [facility] height 2022-02-15 16:00:00 62.5 [in_i] [facility] height 2021-09-15 14:20:00 62.5 [in_i] Common [facility] weight 2021-09-15 14:20:00 216.8 [lb_av] Common [facility] temperature 2021-09-15 14:20:00 97.9 [degF] Common [facility] bmi 2021-09-15 14:20:00 39.02 kg/m2 [facility] oximetry 2021-09-15 14:20:00 100 % [facility] respiratory rate 2021-09-15 14:20:00 17 /min Comm on [facility] blood pressure 2021-09-15 14:20:00 138 mm[Hg] Common [facility] - systolic [facility] blood pressure 2021-09-15 14:20:00 70 mm[Hg] Common [facility] diastolic [facility] Procedures This patient has no known procedures. Encounters Start End Encounter Admission Attending Care Care Encounter Source Date/Time Date/Time Type Type Clinicians Facility Department ID 2022-11-30 Outpatient [facility]ATT [facility] [id number] Common 08:42:01 Marya [id number] [facility] 2022-09-14 Outpatient [place], STLMLC STLMLC [id number] Common 15:38:02 Marya [id number] [facility] 2022-08-13 Outpatient [place], STLMLC STLMLC [id number] Common 14:21:01 Marya [id number] [facility] 2022-07-05 Outpatient [place], STLMLC STLMLC [id number] Common 09:19:01 Marya [id number] [facility] 2022-06-07 Outpatient [place], STLMLC STLMLC [id number] Common 09:14:02 Marya [facility] 2022-02-11 Outpatient [place], STLMLC STLMLC [id number] Common 10:42:02 Marya [facility] 2021-12-23 Outpatient [place], STLMLC STLMLC [id number] Common 13:58:05 Marya [facility] 2022-11-30 2022-11-30 OFFICE STLMLC STLMLC [id number] Co mmon 00:00:00 00:00:00 VISIT EST Spir it PT LEVEL 3 [facility] 2022-09-16 2022-09-16 OFFICE STLMLC STLMLC [id number] Co mmon 00:00:00 00:00:00 VISIT EST Spir it PT LEVEL 3 [facility] 2022-08-23 2022-08-23 (TEL) STLMLC STLMLC [id number] Co mmon 00:00:00 00:00:00 [facility] 2022-08-17 2022-08-17 OFFICE STLMLC STLMLC [id number] Co mmon 00:00:00 00:00:00 VISIT EST Spir it PT LEVEL 3 [facility] 2022-07-07 2022-07-07 OFFICE STLMLC STLMLC [id number] Co mmon 00:00:00 00:00:00 VISIT EST Spir it PT LEVEL 3 [facility] 2022-06-09 2022-06-09 OFFICE STLMLC STLMLC [id number] Co mmon 00:00:00 00:00:00 VISIT EST Spir it PT LEVEL 3 [facility] 2022-02-15 2022-02-15 OFFICE STLMLC STLMLC [id number] Co mmon 00:00:00 00:00:00 VISIT EST Spir it PT LEVEL 3 [facility] 2021-10-06 2021-10-06 (TEL) STLMLC STLMLC [id number] Co mmon 00:00:00 00:00:00 [facility] 2021-10-01 2021-10-01 Inpatient MARCEL Hoyt, HCAPM DAYS 19 [facility] 13:01:00 13:01:00 Beryl Jayne [facility] 2021-09-15 2021-09-15 OFFICE STLMLC STLMLC [id number] Co mmon 00:00:00 00:00:00 VISIT EST Spir it PT LEVEL 3 [facility] 2021-09-03 2021-09-03 Outpatient STLMLC STLMLC [id number] Common 00:00:00 00:00:00 [facility] Results Test Description Test Time Test Comments Results Result Comments Source SURG 2021-10-05 14:48:00 Test Item Value Reference Range Interpretation Commariel nts SURG RUN DATE: (test 10/05/21 ZEESHAN Goyal d - LAB PAGE 1 RUN TIME: 1449 Specimen Inquiry RUN USER: INTERFACE code = PATIENT: SURG) ZO STAHL 38 LOC: SHRUTI U #: [id number] AGE/SX: 41/F ROOM: RE10/01/21[facility] DR: Beryl Hoyt : 76 BED: DIS: STATUS : [facility] TLOC: SPEC #: [id number] RECD: 10/02/21 STATUS: TUYETTo RE #: [id number] MARCI: 10/01/211529 SUBM DR: Beryl Hoyt MD ENTERED: 10/02/21 SP TYPE: SURG OTHR DR: Marya Treviño ORDERED: SURG PATH LVL 4 CO PIES TO: Marya Treviño [address] [place] [address] [address] [place] [address] Beryl Hoyt MD [address] [place] [address] HISTOLOGY: TISS UE ID BLK PCS EJ LEV PROCEDURE DISPOSITION ____ ___ ___ ___ ENDOMETRIUM, NO A 1- 2 PROCEDURES: SURG PATH LVL 4 (10/02/21) TISSUES: A. ENDOMETRIUM, NOS - ENDOMETRIAL CURETTINGS CPT CODES CPT CODE(S): 76042 , , , , , , FINAL DIAGNOSIS Ut erus, endometrium, curettage: PROLIFERATIVE PHASE ENDOMETRIUM WITH GLANDULAR AND STROMAL BREAKD OWN NO EVIDENCE OF ATYPICAL HYPERPLASIA AND MALIGNANCY GROSS DESCRIPTION Endometrial curettings. Rece ived in formalin on a white Telfa pad is a loose aggregate of hemorrhagic soft tissue fragments, 1.5 x 1.5 x 0.8 cm, all submitted as A. /woo Grossing performed at [facility] Pathology, [address] [place] [address], [address], [place], [place] [address]. Supervisor [employer]: Reddy Kumar M.D. CONTINUED ON NEXT PAGE RUN DATE: 10/05/21 [facility] d - LAB PAGE 2 RUN TIME: 1449 Specimen Inquiry RUN USER: INTERFACE SPEC #: [facility]:[id number] PATIENT: ZO STAHL #[id number] (Continued) -- MICROSCOPIC DESCRIPTION E ndometrial curettings. Sections demonstrate fragments of endometrial tissue with glandular and st romal breakdown. The endometrial glands are tubular and mildly tortuous with mitotic activity. These findings are commonly found as a result of an ovulatory cycle. Clinical correlation is required. The re is no evidence of atypical hyperplasia or malignancy. /pdb Signed SIGNATURE ON FILE Sara Rome 10/05/21 1448 END OF REPORT HCG SERUM [id number] 17:26:00 Test Item Value Reference Range Interpretation Comments HCG SERUM QUAL (test SERUM NEGATIVE SCREEN NEGATIVE code = HCGQL) COVID 19 INHOUSE [id number] 17:17:00 Test Item Value Reference Range Interpretation Comments COVID 19 INHOUSE AG NEGATIVE Negative Per manu facturer, (test code = negative result s should [id number]) be treated aspr esumptive and, if inconsi stent with clinical signs andsymptoms or necessary for patient man agement, should betested with an alternative mol ecular assay. Negative resultsdo not preclude SA RS-CoV-2 infection and s hould not be usedas the s ole basis for patient man agement decisions. Nega tive results should be considered in t he context of apatient's r ecent exposures, hist ory, presence of cli nicalsigns and symptoms co nsistent with COVID-19. Spec Comments: PRE OPCBC W/AUTO [id number] 16:47:00 Test Item Value Reference Range Interpretation Comments WHITE BLOOD CELL (test code = 12.3 K/mm3 3.5-11.0 H WBC) RED BLOOD CELL (test code = 4.41 M/mm3 4.70-6.10 L RBC) HEMOGLOBIN (test code = HGB) 12.1 G/DL 10.4-14.9 N HEMATOCRIT (test code = HCT) 37.3 % 31.5-44.1 N MEAN CELL VOLUME (test code = 84.6 Fl 84.5-98.6 N MCV) MEAN CELL HGB (test code = MCH) 27.4 pg 27.0-34.2 N MEAN CELL HGB CONCETRATION 32.4 G/DL 31.5-34.0 N (test code = MCHC) RED CELL DISTRIBUTION WIDTH 13.9 SD 11.5-14.5 N (test code = RDW) PLATELET COUNT (test code = 347 K/mm3 150-450 N PLT) MEAN PLATELET VOLUME (test code 10.90 fL 7.0-10.5 H = MPV) NEUTROPHIL % (test code = NT%) 65.5 % 40-76 N IMMATURE GRANULOCYTE % (test 0.4 % 0.0-5.0 N code = IG%) LYMPHOCYTE % (test code = LY%) 25.9 % 20.5-51.1 N MONOCYTE % (test code = MO%) 5.4 % 1.7-9.3 N EOSINOPHIL % (test code = EO%) 2.3 % 0.0-6.0 N BASOPHIL % (test code = BA%) 0.5 % 0.0-2.0 N NUCLEATED RBC % (test code = 0.0 /100WBC% 0.0-1.0 N NRBC%) NEUTROPHIL # (test code = NT#) 8.1 K/mm3 1.8-7.6 H IMMATURE GRANULOCYTE # (test 0.05 x10 3/uL 0.00-0.03 H code = IG#) LYMPHOCYTE # (test code = LY#) 3.2 K/mm3 0.6-3.2 N MONOCYTE # (test code = MO#) 0.7 K/mm3 0.3-1.1 N EOSINOPHIL # (test code = EO#) 0.3 K/mm3 0.0-0.4 N BASOPHIL # (test code = BA#) 0.1 K/mm3 0.0-0.1 N NUCLEATED RBC # (test code = 0.0 K/mm3 0.0-0.1 N NRBC#) MANUAL DIFF REQUIRED (test code NO DIFF/SCN CRITERIA = MDIFF) Notes Date/Time Note Provider Source 2021-10-01 22:13:00-00:00 [id number] [facility] [id number] [place] [address] PATIENT NAME: ZO STAHL ADMIT DATE: 10/01/21 ACCOUNT NO: [id number] ROOM NO: AGE: 41 REPORT TYPE: OPERATIVE REPORT SEX: F ADMITTING PHYSICIAN: ATTENDING PHYSICIAN: Beryl Hoyt MD OPERATION DATE: 10/01/2021 PREOPERATIVE DIAGNOSES: Menorrhagia (AUB-L). POSTOPERATIVE DIAGNOSES: Menorrhagia (AUB-L). PROCEDURE PERFORMED: Hysteroscopy and D and C. SURGEON: Beryl Hoyt MD. ANESTHESIA: Local plus MAC. SPECIMENS: Endometrial curettings. COMPLICATIONS: None. DRAINS: None. CONDITION: The patient's condition is stable. ESTIMATED BLOOD LOSS: Minimal. PROCEDURE IN DETAIL: After informed consent was verified, the patient was brought to the hospital, she was consented for h ysteroscopy and D and C to sample the endometrium after her IUD was removed as she was having irregular bleeding. She is a 0. She was consented and was ta anatoliy back to the OR. After placing her in a supine fashion, MAC was given, placed in dorsal lithotomy position using Anoop stirrups. Pelvic exam was p erformed. Uterus was anteflexed and slightly enlarged. Vulva and vagi na were prepped and draped in sterile fashion. Anterior lip was grasped with a n Allis clamp, dilated to 16-Arabic. Then, a 2.9-mm diagnostic hysteroscop e was placed in the cervical canal into the uterine cavity under direct visio n. The endometrial cavity was unremarkable with thickened endometrium on all w alls, especially in the right lateral wall. The scope was pulled out. Endometrial curettings were performed. They were handed off for permanent pathology. E BL was minimal. Instruments were all removed. Instrument, needle, and sponge counts were done and were correct at the end of case. Normal saline was used for hysteroscopy distention. The patient was recovered and taken to PACU in stable condition. She has a 1-week followup appointment with me for results. PATIENT NAME: ZO STAHL Dictated By: Beryl Hoyt MD WT: OP:LOSEI/ASHISH/GIANFRANCO Conf#: [id number]/DID#: [id number] Authenticated by Beryl Hoyt MD On 10/08 11:49:32 AM at 1149 PATIENT NAME: ZO STAHL 2021-10-01 15:03:00-00:00 [facility] ([facility]) Brief Op Note REPORT#:[id number] REPORT STATUS: Signed DATE:10/01/21 TIME:1503 PATIENT: ZO STAHL UNIT #: [id number] ROOM/BED: : 78 AGE: 41 SEX: F ATTEND: Sa jeff Hoyt MD ADM AUTHOR: Beryl Hoyt MD * ALL edits or amendments must be made on the el [employer]/computer document * Op/Inv Proc Note - Brief Pre-procedure diagnosis: AUB-O/A Post-procedure diagnosis: same as pre procedure dx Procedures performed: Hysteroscopy d/c Primary Surgeon: viv Machine Inspector(s): none Anesthesia: local anesthesia, monitored anes. ca re Findings: thick endometrium Complications: none Estimated blood loss in ml's: none Specimens removed/altered: EMC Drain(s): None Approach: hysteroscopy Disposition: plan to D/C home at 1540 RPT #: [id number] END OF REPORT
--- NOTE | 2023-07-25 15:55 | RAD REPORT ---
EXAM DESCRIPTION: RAD - Chest Single View - 07/25/2023 3:49 pm CLINICAL HISTORY: syncope Chest pain. COMPARISON: <Comparisons> FINDINGS: Portable technique limits examination quality. Interstitial opacities are prominent which may represent interstitial pulmonary edema or a nonspecifi c interstitial infection. The heart is upper limit normal sized. No displaced fractures.
[2023-07-25 16:09] LABS: Absolute Lymphocytes (CBC) 2.2 K/uL (0.7-4.9); Hematocrit 39.1 % (36.0-45.0); Lymphocytes % 17.5 % (15.3-44.8); MPV 8.7 fL (7.6-11.3); Platelets 460 thou/uL (152-406)
[2023-07-25 16:11] LABS: Specific Gravity 1.023 (1.005-1.030)
[2023-07-25 16:14] LABS: Protime INR 1.15
[2023-07-25] MEDS ORDERED: NA CHLORIDE 0.9% 1,000 ML ONE (16:16)
[2023-07-25 16:17] LABS: Specific Gravity 1.023 (1.005-1.030); Urine Bacteria None Seen /HPF (<20); Urine Bilirubin NEGATIVE (Negative); Urine Blood Negative (Negative); Urine Clarity Extremely Turbid (Clear); Urine Color Yellow (Yellow); Urine Crystals Unidentified Few /HPF (None Seen); Urine Glucose NEGATIVE (Negative); Urine Mucus 2+ /HPF (None Seen); Urine Protein 1+ (Negative); Urine RBC <5 /HPF (None Seen); Urine Urobilinogen Normal (Normal)
[2023-07-25 16:28] LABS: Albumin 4.1 g/dL (3.4-5.0); Bilirubin Direct 0.1 mg/dL (0-0.2); Bilirubin Indirect, Calculated 0.3 mg/dL (0.2-0.8); Bilirubin Total 0.4 mg/dL (0.2-1.0); Magnesium 2.5 mg/dL (1.6-2.4); Potassium 3.8 mEq/L (3.5-5.1); Troponin High Sensitivity 7.5 pg/mL (<58.9)
[2023-07-25 19:21] VITALS: TEMP 97.1; O2SAT 100
[2023-07-25 19:25] VITALS: BP 110/67
--- NOTE | 2023-07-26 16:30 | EKG ---
Test Date: 2023-07-25 Test Time: 16:15:11 Drawing Kiln Operator: ALIYAH MEASUREMENT RESULTS: Intervals: Rate: 64 SC: 158 QRSD: 90 QT: 414 QTc: 427 [place]: P: -5 SC: 158 QRS: 6 T: 30 INTERPRETIVE STATEMENTS: Normal sinus rhythm Normal ECG No previous ECG available for comparison Electronically Signed On 07-26-23 16:26:39 CDT by Chuck Burr
--- NOTE | 2023-07-26 18:38 | ER ---
Nurse's Notes [facility] Name: Zo Stahl Age: 43 yrs Sex: Female : 1980 Arrival Date: 07/25/2023 Time: 13:39 Bed DIS1 Private MD: Diagnosis: Syncope Near;Pneumonia, unspecified organism Presentation: 07/25 13:58 Chief complaint: Patient states: " On 07/11/23 I had Gastric sleeve surgery. When I go mb to stand up, I get really dizzy. This morning, I went to stand up to get into the shower and I passed out. My BP dropped down to 81/66." Pt denies LOC. Coronavirus screen: Vaccine status: Patient reports receiving the 2nd dose of the covid vaccine. Ebola Screen: No symptoms or risks identified at this time. Initial Sepsis Screen: Does the patient meet any 2 criteria? No. Patient's initial sepsis screen is negative. Does the patient have a suspected source of infection? No. Patient's initial sepsis screen is negative. Risk Assessment: Do you want to hurt yourself or someone else? Patient reports no desire to harm self or others. Onset of symptoms was July 25, 2023. 13:58 Method Of Arrival: Ambulatory 9 13:58 Acuity: ZACK 3 mb9 Triage Assessment: 14:02 General: Appears in no apparent distress. Behavior is calm, cooperative. Pain: Denies mb9 pain. Neuro: Moore Agitation-Sedation Scale (RASS): 0 - Alert and Calm Level of Consciousness is awake, alert, obeys commands, Oriented to person, place, time, situation, Appropriate for age Reports dizziness. Cardiovascular: Patient's skin is warm and dry. Respiratory: Airway is patent Respiratory effort is even, unlabored, Respiratory pattern is regular, symmetrical. Derm: Skin is pink, warm \\T\\ dry. Musculoskeletal: Range of motion: intact in all extremities. Historical: - Allergies: 14:00 No Known Allergies; mb9 - Home Meds: 14:00 Celexa 25 mg Oral tab once daily [Active]; Lamictal 100 mg Oral tablet daily [Active]; mb9 Lisinopril Oral [Active]; - PMHx: 14:00 Anemia; Hypertensive disorder; mb9 - PSHx: 14:00 Gastric sleeve; Total abdominal hysterectomy; Cholecystectomy; mb9 - Immunization history:: Adult Immunizations up to date. - Social history:: Smoking status: Patient denies any tobacco usage or history of. Screenin:30 [facility] ED Fall Risk Assessment (Adult) History of falling in the last 3 months, cm10 including since admission Yes- physiologic fall (2 pts) Confusion or Disorientation No (0 pts) Intoxicated or Sedated No (0 pts) Impaired Gait No (0 pts) Mobility Assist Device Used No (0 pt) Altered Elimination No (0 pt) Score/Fall Risk Level 0 - 2 = Low Risk Oriented to surroundings, Maintained a safe environment, Hourly rounding (assess needs \\T\\ fall precautionary measures) done. Abuse screen: Denies threats or abuse. Denies injuries from another. Nutritional screening: No deficits noted. Tuberculosis screening: No symptoms or risk factors identified. Assessment: 17:39 Reassessment: Patient and/or family updated on plan of care and expected duration. Pain mb9 level reassessed. Patient is alert, oriented x 3, equal unlabored respirations, skin warm/dry/pink. Patient states feeling better. Patient states symptoms have improved. 18:30 Reassessment: Patient and/or family updated on plan of care and expected duration. Pain cm10 level reassessed. Patient is alert, oriented x 3, equal unlabored respirations, skin warm/dry/pink. Patient states feeling better. Patient states symptoms have improved. General: Appears in no apparent distress. comfortable, Behavior is calm, cooperative. Pain: Denies pain. Neuro: No deficits noted. Level of Consciousness is awake, alert, obeys commands, Oriented to person, place, time, situation. Cardiovascular: Rhythm is regular. Respiratory: No deficits noted. Airway is patent Respiratory effort is even, unlabored, Respiratory pattern is regular, symmetrical. Vital Signs: 13:58 BP 116 / 78; Pulse 78; Resp 18; Temp 97.1; Pulse Ox 100% on R/A; Weight 104.78 kg; mb9 Height 5 ft. 2 in. ; 18:30 BP 110 / 67; Pulse 61; Resp 16; Pulse Ox 100% ; Pain 0/10; cm10 13:58 Body Mass Index 42.25 (104.78 kg, 157.48 cm) mb 18:30 Pain Scale: Adult cm10 ED Course: 13:40 Patient arrived in ED. im 13:53 Iheonunekwu, Chizite is Attending Physician. ci 14:00 Triage completed. mb9 14:02 Arm band placed on. mb9 15:51 Chest Single View In Process Unspecified. EDMS 16:02 Urinalysis w/ reflexes Sent. cm10 16:02 Troponin High Sensitivity Sent. cm10 16:02 Ptt, Activated Sent. cm10 16:02 Protime (+inr) Sent. cm10 16:02 Test, Urine Sent. cm10 16:02 Magnesium Sent. cm10 16:02 Hepatic Function Sent. cm10 16:02 CBC with Diff Sent. cm10 16:02 Basic Metabolic Panel Sent. cm10 16:03 Initial lab(s) drawn, by tn, sent to lab. Inserted saline lock: 20 gauge in right cm10 antecubital area, using aseptic technique. Blood collected. 17:39 Bed in low position. Call light in reach. Client placed on continuous cardiac and pulse mb9 oximetry monitoring. NIBP monitoring applied. 17:39 No provider procedures requiring assistance completed. mb9 18:30 IV discontinued, intact, bleeding controlled, No redness/swelling at site. Pressure cm10 dressing applied. 18:36 Provided Education on: N/A. cm10 Administered Medications: 16:07 Drug: NS 0.9% IV 1000 ml Route: IV; Rate: 1000 ml; Site: right antecubital; cm10 17:15 Follow up: Response: No adverse reaction; IV Status: Completed infusion; IV Intake: cm10 1000ml Medication: 17:39 VIS not applicable for this client. mb9 Intake: 17:15 IV: 1000ml; Total: 1000ml. cm10 Outcome: 18:01 Discharge ordered by . ci 18:30 Discharged to home ambulatory, with family. cm10 18:30 Condition: good 18:30 Discharge instructions given to patient, Instructed on discharge instructions, follow up and referral plans. medication usage, Demonstrated understanding of instructions, follow-up care, medications, Prescriptions given X 1. 18:37 Patient left the ED. cm10 Signatures: Dispatcher [employer] EDMS Jasmina Herring RN RN [id number] Joan Saha Clarissa, RN RN cm10 Estefany Parker ci
--- NOTE | 2023-07-26 18:38 | EDPHYS ---
Physician Documentation [facility] Name: Zo Stahl Age: 43 yrs Sex: Female : 1980 Arrival Date: 07/25/2023 Time: 13:39 Bed DIS1 Private MD: ED Physician Estefany Parker HPI: 07/25 14:43 The patient has experienced syncope, became unresponsive. Patient is a 43 year old ci female who presents to the ED for evaluation after a syncopal episode that occurred while she was in the shower. Patient felt dizzy and lowered herself to the fround. When she woke up she checked her BP and BP was 81/66. Patient is s/p gastric sleeve by Dr. Casa Esparza in [place] on 07/11. Reports since her surgery she has had intermittent episodes of palpitations, HR shoots up to 170s. . Historical: - Allergies: 14:00 No Known Allergies; mb9 - Home Meds: 14:00 Celexa 25 mg Oral tab once daily [Active]; Lamictal 100 mg Oral tablet daily [Active]; mb9 Lisinopril Oral [Active]; - PMHx: 14:00 Anemia; Hypertensive disorder; mb9 - PSHx: 14:00 Gastric sleeve; Total abdominal hysterectomy; Cholecystectomy; mb9 - Immunization history:: Adult Immunizations up to date. - Social history:: Smoking status: Patient denies any tobacco usage or history of. Vital Signs: 13:58 BP 116 / 78; Pulse 78; Resp 18; Temp 97.1; Pulse Ox 100% on R/A; Weight 104.78 kg; mb9 Height 5 ft. 2 in. ; 18:30 BP 110 / 67; Pulse 61; Resp 16; Pulse Ox 100% ; Pain 0/10; cm10 13:58 Body Mass Index 42.25 (104.78 kg, 157.48 cm) mb9 18:30 Pain Scale: Adult cm10 MDM: 13:53 Patient medically screened. ci 17:57 Patient medically screened. ci 07/25 15:07 Order name: Basic Metabolic Panel; Complete Time: 16:41 cm10 07/25 16:41 Interpretation: Abnormal: CRE 1.31; ALEXANDRO. ci 07/25 15:07 Order name: CBC with Diff; Complete Time: 16:41 cm10 07/25 16:42 Interpretation: Abnormal: WBC 12.70; Mild leukocytosis. ci 07/25 15:07 Order name: Hepatic Function; Complete Time: 16:41 cm10 07/25 15:07 Order name: Magnesium; Complete Time: 16:41 cm10 07/25 15:07 Order name: Test, Urine; Complete Time: 16:41 cm10 07/25 15:07 Order name: Protime (+inr); Complete Time: 16:41 cm10 07/25 15:07 Order name: Ptt, Activated; Complete Time: 16:41 cm10 07/25 15:07 Order name: Troponin High Sensitivity; Complete Time: 16:41 cm10 07/25 15:07 Order name: Urinalysis w/ reflexes; Complete Time: 16:41 cm10 07/25 14:55 Order name: Chest Single View; Complete Time: 16:41 EDMS 07/25 16:42 Interpretation: Per Radiologist's finding(s): FINDINGS: Portable technique limits ci examination quality. Interstitial opacities are prominent which may represent interstitial pulmonary edema or a nonspecific interstitial infection. The heart is upper limit normal sized. No displaced fractures. 07/25 14:52 Order name: Cardiac monitoring; Complete Time: 17:16 ci 07/25 14:52 Order name: EKG - Nurse/Tech; Complete Time: 17:16 ci 07/25 14:52 Order name: IV Saline Lock; Complete Time: 16:03 ci 07/25 14:52 Order name: Labs collected and sent; Complete Time: 16:03 ci 07/25 14:52 Order name: NPO; Complete Time: 17:16 ci 07/25 14:52 Order name: O2 Per Protocol; Complete Time: 17:16 ci 07/25 14:52 Order name: O2 Sat Monitoring; Complete Time: 17:16 ci Administered Medications: 16:07 Drug: NS 0.9% IV 1000 ml Route: IV; Rate: 1000 ml; Site: right antecubital; cm10 17:15 Follow up: Response: No adverse reaction; IV Status: Completed infusion; IV Intake: cm10 1000ml Disposition Summary: 07/25/23 18:01 Discharge Ordered Location: Home ci Condition: Stable ci Diagnosis - Syncope Near ci - Pneumonia, unspecified organism ci Followup: ci - With: Private Physician - When: 1 - 2 days - Reason: Further diagnostic work-up, Recheck today's complaints, Re-evaluation by your physician Discharge Instructions: - Discharge Summary Sheet ci - Community-Acquired Pneumonia, Adult ci - Syncope ci Forms: - Medication Reconciliation Form ci - Thank You Letter ci - Antibiotic Education ci - Prescription Opioid Use ci - Patient Portal Instructions ci - Leadership Thank You Letter ci Prescriptions: - Augmentin 875-125 mg Oral Tablet - take 1 tablet by ORAL route every 12 hours for 7 days; 20 tablet; Refills: 0, ci Product Selection Permitted Signatures: Dispatcher [employer] Jasmina Borges RN RN mb9 Sandra Hagan RN RN cm10 Estefany Parker ci
== END 2023-07-25 18:37 | disposition home or self-care (01) ==
LOC: ER 13:39
DX: J18.9 Pneumonia, unspecified organism (principal); I10 Essential (primary) hypertension; Z98.84 Bariatric surgery status
CPT/HCPCS: 93005; 85025; 81001; 80048; 36415; 83735; 81025; 85610; 80076; 85730; 84484; 71045; 96360; 99284; J7030